=== PATIENT | female | born 1995 ===

== ENCOUNTER 2022-05-17 04:50 | Inpatient (IN) | payer SELFPAY ==
[2022-05-17] MEDS ORDERED: Ondansetron 4 MG/2 ML SDV IVPUSH PRN (05:25)
[2022-05-17] MEDS ORDERED: Lidocaine 1% 50 ML MDV INJECT PRN (05:25)
[2022-05-17] MEDS ORDERED: Carboprost Tromethamine 250 MCG/1 ML Amp IM PRN (05:25)
[2022-05-17] MEDS ORDERED: Water For Irrigation,Sterile 1,000 ML Container IRR PRN (05:25)
[2022-05-17] MEDS ORDERED: Tranexamic Acid 1,000 MG in Sodium Chloride 0.9% 100 ML IV PRN (05:25)
[2022-05-17] MEDS ORDERED: Butorphanol 1 MG/ML SDV IVPUSH PRN (05:25)
[2022-05-17] MEDS ORDERED: Terbutaline 1 MG/ML SDV SUBCUT PRN (05:25)
[2022-05-17] MEDS ORDERED: Sodium Chloride 0.9% 2.5 ML Syringe FLUSH PRN (05:25)
[2022-05-17] MEDS ORDERED: Misoprostol 200 MCG Tab PO PRN (05:25)
[2022-05-17] MEDS ORDERED: Methylergonovine 0.2 MG/1 ML Amp IM PRN (05:25)
[2022-05-17] MEDS ORDERED: Sodium Chloride 0.9% 10 ML Syringe FLUSH PRN (05:25)
[2022-05-17] MEDS ORDERED: Sodium Chloride 0.9% 20 ML SDV IV PRN (05:25)
[2022-05-17] MEDS ORDERED: Oxytocin/0.9 % Sodium Chloride 30 UNIT/500 ML BAG IV SCH ×2 (05:30)
[2022-05-17] MEDS: Lactated Ringers 1,000 ML IV SCH ×3 (05:45→15:55)
[2022-05-17] MEDS ORDERED: Misoprostol 25 MCG (1/4 of 100 MCG) Tab VAG PRN ×2 (06:00→12:00)
[2022-05-17] MEDS ORDERED: Bupivacaine 0.5% 10 ML SDV ONE (14:55)
[2022-05-17] MEDS ORDERED: Ropivacaine/PF 400 MG/200 ML PCA ONE (14:55)
[2022-05-17] MEDS ORDERED: Phenylephrine HCl 0.5 MG/5 ML AMP ONE (15:17)
[2022-05-17] MEDS ORDERED: ePHEDrine 50 MG/ML SDV IVPUSH PRN ×2 (15:23)
[2022-05-17] MEDS ORDERED: Phenylephrine HCl 0.5 MG/5 ML AMP IVPUSH PRN (15:23)
[2022-05-17] MEDS ORDERED: Ropivacaine HCl/PF 400 MG in Premix Bag 1 BAG EPIDUR SCH (15:30)
[2022-05-17] MEDS ORDERED: Ibuprofen 800 MG Tab PO PRN (18:06)
[2022-05-17] MEDS ORDERED: Benzocaine/Menthol 20%-0.5% Spray 78 GM Cannister TOP PRN (18:06)
[2022-05-17] MEDS ORDERED: Hydrocortisone 2.5% Crm 30 GM Tube TOP PRN (18:06)
[2022-05-17] MEDS ORDERED: Acetaminophen 500 MG Tab PO PRN ×2 (18:06)
[2022-05-17] MEDS ORDERED: Witch Hazel Medicated Pads 40/Jar TOP PRN (18:06)
[2022-05-17] MEDS ORDERED: oxyCODONE 5 MG Tab PO PRN (18:06)
[2022-05-17] MEDS ORDERED: Ibuprofen 400 MG Tab PO PRN (18:06)
[2022-05-17] MEDS ORDERED: Docusate Sodium 100 MG Cap PO PRN (18:06)
[2022-05-17] MEDS ORDERED: Bisacodyl 10 MG Supp RECTAL PRN (18:06)
[2022-05-17] MEDS ORDERED: Lanolin 100% Cream 7 GM Tube TOP PRN (18:06)
== END 2022-05-18 20:00 | disposition home or self-care (01) | DRG 807 ==
LOC: MW.OBCHECK 04:50 → MW.OB 04:51 → MW.OBCHECK 04:52 → MW.OB 04:53 → OBSVTOIN 17:43 → MW.OB 22:00
PROVIDERS: ADMIT Obstetrics & Gynecology; ATTEND Obstetrics & Gynecology
PROC: 10E0XZZ Delivery of Products of Conception, External Approach (ICD-10-PCS; principal; 2022-05-17)
PROC: 0KQM0ZZ Repair Perineum Muscle, Open Approach (ICD-10-PCS; 2022-05-17)
PROC: 3E033VJ Introduction of Other Hormone into Peripheral Vein, Percutaneous Approach (ICD-10-PCS; 2022-05-17)
PROC: 3E0R3BZ Introduction of Anesthetic Agent into Spinal Canal, Percutaneous Approach (ICD-10-PCS; 2022-05-17)
PROC: 00HU33Z Insertion of Infusion Device into Spinal Canal, Percutaneous Approach (ICD-10-PCS; 2022-05-17)
DX: O42.02 Full-term premature rupture of membranes, onset of labor within 24 hours of rupture (principal); Z37.0 Single live birth; O70.1 Second degree perineal laceration during delivery; Z3A.39 39 weeks gestation of pregnancy
CPT/HCPCS: 36415; 51702; 59025; 59409; 82803; 85014; 85018; 85027; 86592; 86850; 86900; 86901; A9270-GY; J0595; J2370; J2590; J2795; J3490; J7120